=== PATIENT | male | born 1970 | race Caucasian/White ===

== ENCOUNTER 2018-12-03 11:52 | Observation (INO) ==
[2018-12-03] MEDS ORDERED: *HR* OxyCODONE Immed Rel 5 MG TABLET PO PRN (16:16)
[2018-12-03] MEDS ORDERED: *HR* Promethazine 25 MG/ML VIAL IVP PRN (16:16)
[2018-12-03] MEDS ORDERED: Ondansetron 4 MG/2 ML VIAL IVP ONE ×2 (16:16→20:12)
[2018-12-03] MEDS ORDERED: Famotidine 20 MG/2 ML VIAL ONE (16:20)
[2018-12-03] MEDS ORDERED: Acetaminophen IV 1,000 MG/100 ML INFUS..BTL ONE (16:20)
[2018-12-03] MEDS ORDERED: Famotidine 20 MG/2 ML VIAL IVP ONE (16:36)
[2018-12-03] MEDS ORDERED: Acetaminophen IV 1,000 MG/100 ML INFUS..BTL IVPB ONE (16:37)
[2018-12-03] MEDS ORDERED: Ringers Solution, Lactated 1,000 ML IVC SCH (16:45)
[2018-12-03] MEDS ORDERED: ceFAZolin 2,000 MG in Water for inj. (sterile) 20 ML IVP ONE (16:48)
[2018-12-03] MEDS ORDERED: *HR* Propofol 200 MG/20 ML VIAL IVP ONE (17:35)
[2018-12-03] MEDS ORDERED: *HR* FentaNYL (PF) 100 MCG/2 ML VIAL ONE (17:35)
[2018-12-03] MEDS ORDERED: *HR* Midazolam HCl 2 MG/2 ML VIAL ONE (17:35)
[2018-12-03] MEDS ORDERED: Ketorolac 30 MG/ML VIAL ONE (18:41)
[2018-12-03] MEDS ORDERED: Ondansetron 4 MG/2 ML VIAL ONE (18:41)
[2018-12-03] MEDS ORDERED: Dexamethasone 4 MG/ML VIAL ONE (18:41)
[2018-12-04] MEDS: *HR* OxyCODONE/APAP 5/325 TABLET PO PRN ×2 (00:51→09:52)
[2018-12-04 11:49] VITALS: BP 135/78
[2018-12-04] MEDS ORDERED: cefTRIAXone 2,000 MG in Water for inj. (sterile) 20 ML IVP SCH (14:00)
== END 2018-12-04 14:45 | disposition home or self-care (01) ==
LOC: 3NENU
PROVIDERS: ADMIT Orthopaedic Surgery Hand Surgery; ATTEND Orthopaedic Surgery Hand Surgery